=== PATIENT | male | born 1970 | race Asian ===

== ENCOUNTER 2016-12-11 07:37 | Day surgery (SDC) | payer OTHER ==
[2016-12-10 19:16] LABS: BASOPHILS # (AUTO) 0.1 K/uL (0.0-0.2); BASOPHILS % (AUTO) 1.1 % (0.0-2.0); EOSINOPHILS # (AUTO) 0.4 K/uL (0.0-0.4); EOSINOPHILS % (AUTO) 4.5 % (0.0-4.0); HEMATOCRIT 45.7 % (36-54); HEMOGLOBIN 15.3 g/dL (14.0-18.0); LYMPHOCYTES # (AUTO) 4.1 K/uL (1.0-5.5); LYMPHOCYTES % (AUTO) 44.8 % (20.5-51.5); MEAN CORPUSCULAR HEMOGLOBIN 31 pg (27-31); MEAN CORPUSCULAR HGB CONC 34 % (32-36); MEAN CORPUSCULAR VOLUME 93 fL (79.0-98.0); MONOCYTES # (AUTO) 0.6 K/uL (0.0-1.0); MONOCYTES % (AUTO) 6.3 % (1.7-9.3); NEUTROPHILS # (AUTO) 3.9 K/uL (1.8-7.7); NEUTROPHILS % (AUTO) 43.3 % (40.0-70.0); PLATELET COUNT (AUTO) 202 K/uL (130-430); RED BLOOD CELL COUNT(AUTO) 4.93 MIL/uL (4.2-6.2); RED CELL DISTRIBUTION WIDTH 11.5 % (9.0-15.0); WHITE BLOOD COUNT (AUTO) 9.1 K/uL (4.8-10.8)
[2016-12-10 19:24] LABS: CALCIUM 9.3 mg/dL (8.4-11.0); CREATININE 1.15 mg/dL (0.55-1.30); POTASSIUM 4.2 mmol/L (3.5-5.1)
[~2016-12-11] VITALS: Ht 175.3 cm; Wt 83.9 kg
[2016-12-11] MEDS ORDERED: ONDANSETRON HCL 4 MG/2 ML VIAL IVP ONE (09:35)
[2016-12-11] MEDS ORDERED: ROCURONIUM BROMIDE 10 MG/ML (ZEMURON) IV ONE (09:35)
[2016-12-11] MEDS ORDERED: NS IRRIG SOLN 1000 ML IR ONE (09:35)
[2016-12-11] MEDS ORDERED: KETOROLAC TROMETHAMINE 30 MG VIAL IVP ONE (09:35)
[2016-12-11] MEDS ORDERED: CEFAZOLIN 2 GM IVPB PREMIX 50 ML IV ONE (09:35)
[2016-12-11] MEDS ORDERED: PROPOFOL 200MG/ 20ML VIAL (DIPRIVAN) IV ONE (09:35)
[2016-12-11] MEDS ORDERED: SEVOFLURANE 15 MIN GAS INH ONE (09:35)
[2016-12-11] MEDS ORDERED: DEXAMETHASONE SOD PHOSPHATE 4 MG/ML VIAL IVP ONE (09:35)
[2016-12-11] MEDS ORDERED: fentaNYL CITRATE 250 MCG/5 ML AMP IV ONE (09:35)
[2016-12-11] MEDS ORDERED: MIDAZOLAM HCL 5 MG/5 ML VIAL IVP ONE (09:35)
[2016-12-11] MEDS ORDERED: LR 1,000 ML IV SCH (10:08)
[2016-12-11] MEDS ORDERED: MEPERIDINE HCL/PF 25 MG/ML DISP.SYRIN IVP PRN (10:15)
[2016-12-11] MEDS ORDERED: HYDROmorphone 2 MG/ML VIAL IVP PRN ×2 (10:15)
[2016-12-11] MEDS ORDERED: HYDROmorphone 1 MG INJ. 1 MG/ML AMPUL IVP PRN (10:15)
[2016-12-11 11:00] VITALS: BP_SYST 110
== END 2016-12-11 12:05 | disposition home or self-care (01) ==
LOC: SDS 07:37 → SMU 07:37 → SDS 12:05
PROVIDERS: ATTEND Specialist
DX: D17.24 Benign lipomatous neoplasm of skin and subcutaneous tissue of left leg (principal); Z87.891 Personal history of nicotine dependence
CPT/HCPCS: 11403; 36415; 71020; 80048; 85025; 88304; 93005; J0690; J1100; J1885; J2250; J2405; J2704; J3010; J7120